=== PATIENT | female | born 1980 | race Caucasian/White ===

== ENCOUNTER 2020-12-24 16:53 | Emergency (ER) | payer MEDICAID ==
[~2020-12-24] VITALS: Ht 152.4 cm; Wt 49.9 kg
[~2020-12-24 16:53] MED LIST: CIPROFLOXACIN500 M1 PO; ELMIRON; GABAPENTIN100 MG PO; HYDROXYZINE HCL10 M1 PO; NORCO 5-325 TA1 EACH PO; PERCOCET 5-3251 EACH; SEASONALE1 EACH PO; TRAMADOL 50 MG50 MG PO
[2020-12-24] MEDS ORDERED: WELLBUTRIN 75 M75 M1 PO (17:07)
[2020-12-24] MEDS ORDERED: LAMICTAL5 MG PO (17:07)
[2020-12-24] MEDS ORDERED: CLONAZEPAM 0.50.5 M1 PO (17:07)
[2020-12-24] MEDS ORDERED: ADDERALL 10 MG10 MG PO (17:07)
[2020-12-24 17:54] LABS: ABSOLUTE BASOPHILS 0.1 thou/uL (0.0-0.2); ABSOLUTE EOSINOPHILS 0.2 thou/uL (0.0-0.7); ABSOLUTE LYMPHOCYTES 2.3 thou/uL (0.8-5.3); ABSOLUTE MONOCYTES 0.5 thou/uL (0.0-1.2); ABSOLUTE NEUTROPHILS 6.3 thou/uL (1.6-8.1); BASOPHILS 1.5 %; EOSINOPHILS 1.7 %; HEMATOCRIT 39.1 % (37.0-47.0); HEMOGLOBIN 13.2 gm/dL (12.0-15.0); LYMPHOCYTES 24.4 %; MCH 32.8 pg (26.0-34.0); MCHC 33.8 g/dL (28.0-37.0); MONOCYTES 5.7 %; MPV 7.2 fl. (7.2-11.1); NUCLEATED RBCS 0 /100WBC; PLATELET COUNT* 416 thou/uL (150-400); POLYS 66.7 %; RBC 4.03 mil/uL (4.20-5.00); RDW-CV 13.5 % (10.5-14.5); WBC 9.5 thou/uL (4.0-11.0)
[2020-12-24 18:03] LABS: CALCIUM 8.7 mg/dL (8.5-10.1); CREATININE 0.8 mg/dL (0.6-1.3); POTASSIUM 4.2 mmol/L (3.5-5.1)
[2020-12-24 18:16] LABS: ALBUMIN 3.6 g/dL (3.4-5.0); MAGNESIUM 1.9 mg/dL (1.8-2.4); TOTAL BILIRUBIN 0.2 mg/dL (<0.1-1.0); TOTAL PROTEIN 7.7 g/dL (6.4-8.2)
[2020-12-24 21:00] VITALS: BP 140/96
[2020-12-24] MEDS ORDERED: ZOFRAN ODT4 MG PO (21:17)
[2020-12-24] MEDS ORDERED: NORCO5 PO (21:30)
--- NOTE | 2020-12-25 09:05 | EKG ---
[place] [address] ELECTROCARDIOGRAM REPORT Name: ZACHARY ALFONSO Room: [facility]#: [id number] Admission: 12/24/20 Attend Phys: Discharge: 12/24/20 Date of : 82 Date of Service: 12/24/201657 Report #: [id number] THIS REPORT FOR: //name// [facility] ED Test Date: 2020-12-24 Test Time: 16:58:51 Pat Name: ZACHARY ALFONSO Department: Room: Gender: Senior Outside Sales Representative: : 1980 Requested By: Eva Orozco Order Number: [id number] MD: Cali Hinson Measurements Intervals [place] Rate: 98 P: 85 [place]: 143 QRS: 85 QRSD: 91 T: 50 QT: 351 QTc: 449 Interpretive Statements Sinus rhythm No previous ECG available for comparison Electronically Signed On 12-25-2020 9:05:52 CDT by Cali Hinson [email or web address] <ELECTRONICALLY SIGNED> By: Cali Hinson MD, [facility] 12/25/20904 57 57 Cali Hinson MD, FACC /EPI
== END 2020-12-24 22:03 | disposition home or self-care (01) ==
LOC: M.ERS 16:53
PROVIDERS: Nurse Practitioner Family
DX: K85.90 Acute pancreatitis without necrosis or infection, unspecified (principal); Z87.42 Personal history of other diseases of the female genital tract; Z90.89 Acquired absence of other organs; Z98.890 Other specified postprocedural states; Z79.899 Other long term (current) drug therapy; Z88.1 Allergy status to other antibiotic agents; Z88.0 Allergy status to penicillin; Z88.2 Allergy status to sulfonamides